=== PATIENT | male | born 1970 | race Asian ===

== ENCOUNTER 2016-12-24 10:21 | Observation (INO) | payer OTHER ==
[~2016-12-24] VITALS: Ht 172.7 cm; Wt 73.5 kg
[2016-12-24] VITALS (12 sets, daily range): BP systolic 106–151; BP diastolic 68–89
[~2016-12-24 10:21] MED LIST: Dexamethasone Inj PF*Surgery use* 10 MG/ML VIAL IV ONE; TAMSULOSIN HCL0.4 MG ORAL; ceFAZolin 1gm in D5W 55ml IVP ONE; ceFAZolin 1gm/50ml Premix 50 ML IV SCH
[2016-12-24] MEDS ORDERED: Dexamethasone 20mg/5ml IVP ONE (11:30)
[2016-12-24] MEDS ORDERED: LR 1000ml 1,000 ML IVLG SCH (11:58)
--- NOTE | 2016-12-24 11:58 | Anethesia Preoperative Eval ---
Anesthesia Pre-op PMH/ROS General Date of Evaluation: Dec 24, 2016 Time of Evaluation: 12:06 Anesthesiologist: Daniel ASA Score: ASA 2 Mallampati Score Class I : Soft palate, uvula, fauces, pillars visible Class II: Soft palate, uvula, fauces visible Class III: Soft palate, base of uvula visible Class IV: Only hard plate visible Mallampati Classification: Class II Surgeon: Karina Diagnosis: Neck Pain Surgical Procedure: ACDF C4-5, C5-6, C6-7 Anesthesia History: none Social History: current smoker Family History: no anesthesia problems Allergies: Coded Allergies: No Known Allergies (Unverified , 12/23/16) Medications: see eMAR Past Medical History Pulmonary: Reports: other - Bronchitis Gastrointestinal/Genitourinary: Reports: GERD Anesthesia Pre-op Phys. Exam Physician Exam Last Vital Signs Date Time Temp Pulse Resp B/P Pulse Ox O2 Delivery O2 Flow Rate FiO2 12/24/16 11:02 98.6 60 18 151/79 100 Room Air Constitutional: NAD Neurologic: CN 2-12 intact Cardiovascular: RRR Respiratory: CTA Gastrointestinal: S/NT/ND Airway Exam Mallampati Score: Class II MO: full ROM: limited Teeth: intact Anesthesia Pre-op A/P Risk Assessment & Plan Assessment: ASA 2 Plan: GA, BIS, Glidescope Status Change Before Surgery: No Pre-Antibiotics Dru Grams Ancef IV Given Within 1 Hr of Incision: Yes Time Given: 12:21 Marcos Sanchez MD Dec 24, 2016 11:58
--- NOTE | 2016-12-24 11:58 | Pre-Procedure Note/Attestation ---
Pre-Procedure Note/Attestation Complete Prior to Procedure Planned Procedure: not applicable Procedure Narrative: ACDF C4-5, C5-6, C6-7 Anterior Internal Plate Fixation C4-5-6-7 Indications for Procedure Pre-Operative Diagnosis: Post Trauma Neck Pain Attestation I attest that I discussed the nature of the procedure; its benefits; risks and complications; and alternatives (and the risks and benefits of such alternatives ), prior to the procedure, with the patient (or the patient's legal front desk representative). I attest that, if there was a reasonable possibility of needing a blood transfusion, the patient (or the patient's legal front desk representative) was given the [place] [employer] [facility] standardized written summary, pursuant to the Dave Stefanie Blood Safety Act ([place] Health and Safety Code # 1645, as amended). I attest that I re-evaluated the patient just prior to the surgery and that there has been no change in the patient's H&P, except as documented below: SAMUEL CURTIS Dec 24, 2016 11:58
[2016-12-24] MEDS ORDERED: Atropine Inj 1mg/10ml Syr IV PRN (12:00)
[2016-12-24] MEDS ORDERED: fentaNYL 100 mcg/2 mL IV PRN (12:00)
[2016-12-24] MEDS ORDERED: Meperidine 25mg/0.5ml Inj (FOR RIGORS ONLY) IV PRN (12:00)
[2016-12-24] MEDS ORDERED: oxyCODONE HCL/Acetaminophen 5/325mg ORAL PRN (12:00)
[2016-12-24] MEDS ORDERED: Hydromorphone 0.5mg/0.5ml inj IVP PRN (12:00)
[2016-12-24] MEDS ORDERED: Metoclopramide 10mg/2ml Inj IVP PRN (12:00)
[2016-12-24] MEDS ORDERED: Norco 5mg/325mg tab ORAL PRN (12:00)
[2016-12-24] MEDS ORDERED: Ketorolac 60mg Inj IV PRN (12:00)
[2016-12-24] MEDS ORDERED: Norco 7.5mg/325mg tab ORAL PRN (12:00)
[2016-12-24] MEDS ORDERED: DiphenhydrAMINE 50mg/ml Inj IVP PRN (12:00)
[2016-12-24] MEDS ORDERED: LORazepam Inj 2mg/ml 1ml IV PRN (12:00)
[2016-12-24] MEDS ORDERED: Ketorolac 30mg Inj IV PRN (12:00)
[2016-12-24] MEDS ORDERED: Midazolam 2mg/2ml Inj IVP PRN (12:00)
[2016-12-24] MEDS ORDERED: Bupivacaine 0.5% Inj 30 ml vial INJ ONE (12:04)
[2016-12-24] MEDS ORDERED: Bupivacaine w/Epi 0.5% 30ml Vial INJ ONE (12:04)
[2016-12-24] MEDS ORDERED: Surgicel 4in x 8in TOPIC ONE (12:04)
[2016-12-24] MEDS ORDERED: Bacitracin 50000 Units Vial ONE (12:04)
[2016-12-24] MEDS ORDERED: Thrombin 5000 units TOPIC ONE (12:04)
[2016-12-24] MEDS ORDERED: Lidocaine 1% Plain 30 ml INJ ONE (12:04)
[2016-12-24] MEDS ORDERED: Vancomycin 1gm inj IVPB ONE (12:04)
--- NOTE | 2016-12-24 12:04 | Immediate Post-Op Evaluation ---
Immediate Post-Op Evalulation Immediate Post-Op Evalulation Procedure: ACDF C4-5,C5-6, C6-7 Date of Evaluation: Dec 24, 2016 Time of Evaluation: 16:37 IV Fluids: 1800 LR Blood Products: 0 Estimated Blood Loss: 50 Urinary Output: 200 Blood Pressure Systolic: 131 Blood Pressure Diastolic: 87 Pulse Rate: 71 Respiratory Rate: 16 O2 Sat by Pulse Oximetry: 100 Temperature (Fahrenheit): 97.6 Pain Score (1-10): 3 Nausea: No Vomiting: No Complications 0 Patient Status: awake, reacts, patent, extubated, none Hydration Status: adequate Dru Grams Ancef IV Given Within 1 Hr of Incision: Yes Time Given: 12:21 Marcos Sanchez MD Dec 24, 2016 12:04
[2016-12-24] MEDS ORDERED: Norco 10mg/325mg tab ORAL PRN (12:30)
[2016-12-24] MEDS ORDERED: HYDROmorphone 1mg/ml Carpuject SUBQ PRN ×2 (12:30→16:00)
[2016-12-24] MEDS ORDERED: Chloraseptic Spray 20mL Bottle ORAL PRN (12:30)
[2016-12-24] MEDS ORDERED: Acetaminophen (Non formulary) 1,000 MG/100 ML ML IV ONE (13:00)
--- NOTE | 2016-12-24 15:46 | Brief Operative Note ---
Immediate Post Operative Note Operative Note Pre-op Diagnosis: Post Trauma Neck Pain Procedure: Hemivertebrectomy: C4, C5, C6, C7 correction deformity interbody synthetic PEEK device - lordotic Fusion C4-5, C5-6, C6-7 Osteopromotive material application: C4-C5, C5-C6, C6-C7 Anterior internal fixation C4-5-6-7 SSEP Microscope Xray Post-op Diagnosis: same as pre-op Findings: consistent w/pre-op dx studies Surgeon: Karina CORBETT Relay Tester Helper: Sangeetha NICOLE Anesthesiologist: Daniel Anesthesia: general Specimen: none Complications: none Condition: stable Estimated Blood Loss: minimal Implant(s) used?: Yes SAMUEL CURTIS Dec 24, 2016 15:46
[2016-12-24] MEDS ORDERED: Naloxone 0.4mg/ml Inj IVP PRN (16:00)
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
[2016-12-24] MEDS ORDERED: D5 1/2NS 1,000 ML IV SCH (19:00)
[2016-12-24] MEDS ORDERED: ceFAZolin sod 2 GM in D5W 110 ML IV SCH (20:30)
[2016-12-24] MEDS ORDERED: ceFAZolin 2gm/50 ML IV SCH (20:30)
--- NOTE | 2016-12-24 20:46 | Operative Note - Dictated ---
DATE OF OPERATION: 12/24/2016 ADMITTING/PREOPERATIVE DIAGNOSIS: Posttraumatic severe cervical spine pain. POSTOPERATIVE DIAGNOSIS: Posttraumatic severe cervical spine pain. SURGEON: Louis Collins M.D. OVERHAULER HELPER: BONNIE Capone. ANESTHESIOLOGIST: Marcos Sanchez M.D. ANESTHESIA: General with intubation. ESTIMATED BLOOD LOSS: Minimal. COMPLICATIONS: None. POSTOPERATIVE CONDITION: Good/stable. PROCEDURES: 1. Robe-vertebrectomy C4, C5, C6, C7. 2. Interbody reconstruction correction deformity to lordosis with synthetic PEEK graft C4-C5, C5-C6, C6-C7. 3. Fusion C4-C5, C5-C6, C6-C7. 4. PLACEMENT OF OSTEO INDUCTIVE MATERIAL: C4-C5, C5-C6, C6-C7. 5. ANTERIOR INTERNAL PLATE FIXATION: C4-C5 to C6-C7. 6. Intraoperative fluoroscopy interpreted by surgeon. 7. High-powered microscopic dissection. 8. SSEP monitoring. DESCRIPTION OF PROCEDURE: The patient was brought to the operating room and in supine position, general anesthesia intubation was induced. Intravenous antibiotics intravenous Decadron were administered 30 minutes prior to incision time. After appropriate position in the supine position, a cross-table fluoroscopic imaging was obtained with markers in place demonstrating the correct level for incision placement. Level was marked. Markers removed (markers did not penetrate the skin at any time.) Markers were placed on the contralateral aspect of the neck from the incision. Anterior cervical spine was sterilely prepped and draped free in usual sterile fashion. A longitudinal left incision over the appropriate intervals paralleling the medial aspect of the sternocleidomastoid muscle was sharply placed in the dermis and epidermis. Electrocautery dissection was carried through the subcutaneous tissue to platysmas muscle. This was identified, isolated, and transected in line with the incision. Dissection was carried medial to the carotid sheath through the deep cervical and pretracheal fascia to the midline between the right and left longus colli muscles. A spinal needle bent at 90 degree angle so as to avoid penetration greater than 3 mm was placed in to the disc space and a cross-table images obtained under sterile conditions demonstrating the correct levels for further surgery/intervention. Level was marked. Marker removed. Retractors placed. C4-C5: Annulotomy was performed. Large anterior osteophyte resected under high-power magnification with Midas Jacob bur dissection. Robe vertebrectomy inferior C4 and superior C5 performed a decompression. Interpositional grafting with the appropriate lordotic graft PEEK containing osteopromotive material. Tamped into position with correction of collapse to lordosis. SSEP monitoring stable. Retractors were placed at the C5-C6 interval. Large anterior osteophyte encountered. Osteophyte excised with Midas Jacob bur dissection under high-power magnification with a robe vertebrectomy of inferior C5 and superior C6 to the posterior longitudinal ligament. Decompression undertaken. SSEP monitoring. No dural tears or leaks noted or cerebrospinal fluid leakage noted anytime during the procedure at any of the 3 levels. Interpositional grafting was undertaken with a lordotic PEEK graft containing osteopromotive material. SSEP monitoring stable. Attention was turned to the C6-C7 interval with retractors placed at that interval. Large anterior osteophyte was resected with Midas Jacob bur dissection under high-power magnification. Robe vertebrectomy inferior C6 and superior C7 accompanied by diskectomy and decompression. Interpositional grafting was undertaken with the appropriately sized/dimension PEEK graft containing osteopromotive material for fusion. Graft was tamped into position under high-power magnification. Fit excellent. Correction of kyphosis to lordosis. Wound was irrigated antibiotic-containing saline. A 10 pounds of traction on the neck was removed. Anterior internal plate fixation was undertaken in a compressive fashion with bilateral screws at C4, C5, C6 and C7. Screw purchase excellent. Screws locked into position. Fluoroscopic image obtained demonstrating excellent alignment and position. Wound was irrigated with antibiotic-containing saline. Exploration did not reveal any excoriation or laceration of vital structures. FloSeal applied. A 1 g of vancomycin powder applied. Reapproximation of the platysmas muscle, subcutaneous tissue, dermis and epidermis. Surgical strips applied transverse to the incision. Sterile bandage applied and maintained in place with tape. The patient was awakened, extubated in the operating room, and transported to postop recovery in good stable condition. Louis Collins M.D. DR: PENNY JOB#: [id number] CC:
[2016-12-24] MEDS ORDERED: LORazepam 1mg tab ORAL SCH (21:00)
[2016-12-24] MEDS ORDERED: Dronabinol 2.5mg Cap ORAL SCH (22:00)
[2016-12-24] MEDS ORDERED: LR 1000ml ONE (23:49)
[2016-12-24] MEDS ORDERED: Zemuron 50mg/5ml Inj IV ONE (23:49)
[2016-12-24] MEDS ORDERED: Midazolam 2mg/2ml Inj ONE (23:49)
[2016-12-25] MEDS ORDERED: Propofol 10mg/ml 100ml btl IV ONE (00:03)
[2016-12-25] MEDS ORDERED: Midazolam 2mg/2ml Inj ONE (00:03)
[2016-12-25] MEDS ORDERED: LR 1000ml ONE (00:03)
[2016-12-25] MEDS ORDERED: fentaNYL 250mcg/5ml ONE (00:03)
[2016-12-25] MEDS ORDERED: GLYCOPYRROLATE 0.2 MG/ML ONE (00:03)
[2016-12-25] MEDS ORDERED: Labetalol 5mg/ml 20ml vial IV ONE (00:03)
[2016-12-25] MEDS ORDERED: Lidocaine 1% Plain 30 ml INJ ONE (00:03)
[2016-12-25] MEDS ORDERED: Sterile Water Irrig 1000ml IRRIG ONE (00:03)
[2016-12-25] MEDS ORDERED: Zemuron 50mg/5ml Inj IV ONE (00:03)
[2016-12-25] MEDS ORDERED: Neostigmine 1mg/ml 10ml Inj ONE (00:03)
--- NOTE | 2016-12-25 16:14 | Diagnostic Imaging Report ---
Indication: Neck Pain Findings: Fluoroscopic views of the cervical spine were obtained. Images showing multilevel anterior fusion C4-C7 with anterior compression plate and fixation screws. Discectomy/prosthesis also demonstrated. Impression: Intraoperative imaging
[2016-12-25 16:30] VITALS: BP 116/56
--- NOTE | 2016-12-25 16:30 | 48 Hour Post Anesthesia Eval ---
Post Anesthesia Evaluation Procedure: ACDF C4-5,C5-6, C6-7 Date of Evaluation: Dec 24, 2016 Time of Evaluation: 17:20 Blood Pressure Systolic: 116 0: 56 Pulse Rate: 72 Respiratory Rate: 20 Temperature (Fahrenheit): 97.5 O2 Sat by Pulse Oximetry: 98 Airway: patent Nausea: No Vomiting: No Pain Intensity: 2 Hydration Status: adequate Cardiopulmonary Status: stable Mental Status/LOC: patient returned to baseline Follow-up Care/Observations: n/a Post-Anesthesia Complications: none Follow-up care needed: ready to discharge PASCUAL CH M.D. Dec 25, 2016 16:30
== END 2016-12-24 23:50 | disposition home or self-care (01) ==
LOC: SDSOVERFLO 10:21 → INTOOBSV 10:21 → 3E 13:49 → UNDODISOB 12-25 00:04
DX: M54.12 Radiculopathy, cervical region (principal); M54.2 Cervicalgia; G89.18 Other acute postprocedural pain; N40.0 Benign prostatic hyperplasia without lower urinary tract symptoms; K21.9 Gastro-esophageal reflux disease without esophagitis; Z72.0 Tobacco use; F12.90 Cannabis use, unspecified, uncomplicated; Z72.89 Other problems related to lifestyle
CPT/HCPCS: 22808; 22853; 36415; 72040; 76001; 86850; 86900; 86901; 87081; C1713; G0378; J0690; J1100; J1170; J2250; J3370; J3490; J7120; 94003; 94150; J2180; J2405; J2710